=== PATIENT | female | born 1955 | race Caucasian/White ===

== ENCOUNTER 2022-08-26 19:49 | Emergency (ER) | payer MEDICAID | END 2022-08-26 22:08 | disposition home or self-care (01) | LOC: JD.ED 19:49 | DX: T23.202A Burn of second degree of left hand, unspecified site, initial encounter (principal) | CPT/HCPCS: 16020; 99283 ==

== ENCOUNTER 2024-08-12 09:38 | Day surgery (SDC) | payer OTHER ==
[~2024-08-12 09:38] MED LIST: Sodium Chloride 0.9% 10 ML Syringe FLUSH PRN; Sodium Chloride 0.9% 10 ML Syringe FLUSH SCH
[2024-08-12] MEDS ORDERED: Propofol 200 MG/20 ML SDV ONE ×4 (09:52→10:24)
[2024-08-12] MEDS: Lactated Ringers 1,000 ML IV SCH (10:00)
== END 2024-08-12 11:27 | disposition home or self-care (01) ==
LOC: JD.SDS 09:38
PROVIDERS: ATTEND Surgery
DX: Z12.11 Encounter for screening for malignant neoplasm of colon (principal); K57.30 Diverticulosis of large intestine without perforation or abscess without bleeding; K44.9 Diaphragmatic hernia without obstruction or gangrene; I10 Essential (primary) hypertension; E78.5 Hyperlipidemia, unspecified; E66.01 Morbid (severe) obesity due to excess calories; Z68.43 Body mass index [BMI] 50.0-59.9, adult; Z86.010 Personal history of colon polyps; Z87.891 Personal history of nicotine dependence
CPT/HCPCS: 43239; 45378; J2704; J7120; 00813